=== PATIENT | male | born 1965 | race Caucasian/White ===

== ENCOUNTER → 2024-05-15 | Outpatient (CLI) | payer BC, SELFPAY ==
--- NOTE | 2024-05-15 08:30 | XR_ITS ---
Examination: CT chest, without intravenous contrast. Sagittal and coronal 2-D reconstructions. Exam date and time: May 15, 2024 at 0850 hours INDICATIONS: Smoking history 20 years CTDI:vol (mGy) 18.3 DLP: (mGycm) 782 Technique: Multiple 3.0 mm axial sections of the chest to been obtained. Bone and lung density settings are obtained. Sagittal and coronal 2-D reconstructions have been obtained. Low dose protocols were performed. One or more of the following dose reduction techniques were used; automated exposure control, adjustment of the mA and/or KV according to patient size, use of iterative reconstruction technique. Findings: No thoracic aortic aneurysm dilatation Pulmonary artery segments are not enlarged No paratracheal tracheobronchial or bronchopulmonary adenopathy Mild calcification left anterior descending coronary artery 2 mm pleural-based pulmonary nodule posterior right lung image 47 2 mm pleural-based pulmonary nodule right upper lobe image 56 No pneumonia or pulmonary edema Severe fatty infiltration throughout the liver, no focal liver or splenic lesions Contracted gallbladder No pancreatic or adrenal mass Kidneys partially visualized no hydronephrosis Moderate osteopenia IMPRESSION: Subcentimeter pulmonary nodules as above, with this study as baseline recommend 6 month follow-up CT chest without contrast
== END | disposition home or self-care (01) ==
LOC: CCTX 08:21
PROVIDERS: Referring Provider Internal Medicine; Visit Provider Internal Medicine
DX: Z12.2 Encounter for screening for malignant neoplasm of respiratory organs (principal); R91.8 Other nonspecific abnormal finding of lung field
CPT/HCPCS: 71271

== ENCOUNTER → 2024-09-26 | Outpatient (CLI) | payer BC, SELFPAY ==
[2024-09-26 08:52] LABS: Quantiferon-TB* See Sep Rpt
[2024-09-26 09:34] LABS: Basophils # (Auto) 0.1 Thou/mm3 (0.0-0.2); Basophils % (Auto) 1 % (0-2.5); Eosinophils # (Auto) 0.2 Thou/mm3 (0.0-0.5); Eosinophils % (Auto) 2 % (0-10); Hematocrit 47.2 % (41.0-53.0); Hemoglobin 16.1 g/dL (13.5-16.0); Immature Granulocytes % (Auto) 1 % (0-0); Immature Granulocytes Auto 0.06 Thou/mm3 (0.00-0.00); Lymphocytes # (Auto) 2.1 Thou/mm3 (1.0-4.8); Lymphocytes % (Auto) 22 % (10-50); Mean Corpuscular HGB Conc 34.1 g/dl (31.0-37.0); Mean Corpuscular Hemoglobin 31.8 pg (25.0-35.0); Mean Corpuscular Volume 93 fL (80-100); Monocytes # (Auto) 1.2 Thou/mm3 (0.0-0.8); Monocytes % (Auto) 12 % (0-12); Neutrophils # (Auto) 6.1 Thou/mm3 (1.8-7.7); Neutrophils % (Auto) 63 % (37-80); Nucleated Red Blood Cell % 0 /100 WBC (0); Platelet Count 314 Thou/mm3 (140-440); RDW Standard Deviation 46.1 fL (35.1-43.9); Red Blood Count 5.06 Miln/mm3 (4.50-5.90); White Blood Count 9.7 Thou/mm3 (3.8-10.6)
[2024-09-26 09:46] LABS: Glucose Estimated Average 100 mg/dL (80-131); Hemoglobin A1C 5.1 % Hgb (4.8-6.0)
[2024-09-26 09:49] LABS: Alanine Aminotransferase 42 U/L (10-49); Albumin, Serum 4.9 gm/dL (3.5-5.0); Albumin/Globulin Ratio 1.9 (1.2-2.2); Alkaline Phosphatase 72 U/L (46-116); Anion Gap 10 (7-16); Aspartate Amino Transferase 40 U/L (0-34); BUN/Creatinine Ratio 16 Ratio (12-20); Bilirubin,Total 0.7 mg/dL (0.3-1.2); Blood Urea Nitrogen 16 mg/dL (9-23); Calcium 9.7 mg/dL (8.3-10.6); Calcium (Corrected) 9.7 mg/dL (8.5-10.1); Carbon Dioxide 27.8 mMol/L (20.0-31.0); Cardiac Risk Estimate 2.3 RATIO (4.0-6.7); Chloride 104 mMol/L (98-107); Cholesterol 199 mg/dL (132-200); Globulin 2.6 gm/dL (2.3-3.5); Glucose 108 mg/dL (74-106); HDL Cholesterol 86 mg/dL (40-60); LDL Cholesterol,Calculated 102 mg/dL (0-130); Osmolality,Calculated 285 (275-295); Potassium 4.5 mMol/L (3.4-5.1); Sodium 142 mMol/L (136-145); Total Protein 7.5 gm/dL (5.7-8.2); Triglycerides 56 mg/dL (30-150); eGFR > 60 See Note
[2024-09-26 12:28] LABS: Cocci Serology, IgM Negative (Negative)
[2024-09-28 11:21] LABS: Cocci Serology, IgG Negative (Negative)
== END | disposition home or self-care (01) ==
LOC: COPL 08:36
PROVIDERS: PCP Internal Medicine; Referring Provider Internal Medicine; Visit Provider Internal Medicine
DX: J45.909 Unspecified asthma, uncomplicated (principal); I10 Essential (primary) hypertension; R05.9 Cough, unspecified
CPT/HCPCS: 36415; 80053; 80061; 83036; 85025; 86331; 86480; 86635